=== PATIENT | female | born 1980 | race Caucasian/White ===

== ENCOUNTER → 2017-01-31 | Outpatient (CLI) | payer BC, MEDICARE ==
[~2017-01-31] MED LIST: DESYREL100 MG PO; FLUOXETINE HCL20 M1 PO; HYDROCODONE/APA1 T16 PO; PREDNISONE10 MG PO; VITAMIN B122500 MC1
== END | disposition home or self-care (01) ==
LOC: CLAB 11:28
DX: D64.9 Anemia, unspecified (principal)
CPT/HCPCS: 36415; 86850; 86900; 86901; 86923

== ENCOUNTER → 2017-02-01 | Outpatient (CLI) | payer BC, MEDICARE | END | disposition home or self-care (01) | LOC: CSSDAY 07:54 | DX: D64.9 Anemia, unspecified (principal) | CPT/HCPCS: 36430; J1642; P9016 ==